=== PATIENT | female | born 1990 | race Caucasian/White ===

== ENCOUNTER 2019-04-21 10:45 | Emergency (ER) | payer OTHER ==
--- NOTE | 2019-04-21 11:41 | ER Document Report ---
ED Medical Screen (RME) - General Chief Complaint: Nausea Stated Complaint: NAUSEA Time Seen by Provider: 04/21/19 11:36 Mode of Arrival: Ambulatory Information source: Patient Notes: 28-year-old female presents to ED for a painful knot to the top of her head that is been there since April 13 but is growing in size. She states she is nauseated with blurry vision that is increasing since the . She states she went to [facility] the provider roughly touch the back of her head and then told her there was nothing she was concerned about. She states she is here to find out what is going on and why this is progressing. She states she does not have any medical history except for gallbladder removal and depression and she smokes half a pack a day. I have greeted and performed a rapid initial assessment of this patient. A comprehensive ED assessment and evaluation of the patient, analysis of test results and completion of medical decision making process will be conducted by an additional ED providers. TRAVEL OUTSIDE OF THE [place] IN LAST 30 DAYS: No - Related Data Allergies/Adverse Reactions: Sulfa (Sulfonamide Antibiotics) Allergy (Verified 04/21/19 11:26) Past Medical History - Social History Chew tobacco use (# tins/day): No Frequency of alcohol use: Recovering Alcoholic Drug Abuse: None Physical Exam - Vital signs Vitals: Temp Pulse Resp BP Pulse Ox 98.6 F 79 18 123/79 99 04/21/19 10:47 04/21/19 10:47 04/21/19 10:47 04/21/19 10:47 04/21/19 10:47 Course - Vital Signs Vital signs: Temp Pulse Resp BP Pulse Ox 98.6 F 79 18 123/79 99 04/21/19 10:47 04/21/19 10:47 04/21/19 10:47 04/21/19 10:47 04/21/19 10:47
[2019-04-21 12:18] LABS: ABSOLUTE EOSINOPHILS # (AUTO) 0.1 10^3/uL (0.0-0.6); ABSOLUTE LYMPHOCYTES (AUTO) 1.3 10^3/uL (0.5-4.7); ABSOLUTE MONOCYTES (AUTO) 0.4 10^3/uL (0.1-1.4); ABSOLUTE NEUT (AUTO) 4.3 10^3/uL (1.7-8.2); BASOPHILS % (AUTO) 0.7 % (0-2); EOSINOPHILS % (AUTO) 1.2 % (0-6); HEMATOCRIT 41.1 % (36.0-47.0); LYMPHOCYTES % (AUTO) 20.8 % (13-45); MEAN CORPUSCULAR HEMOGLOBIN 33.8 pg (27.0-33.4); MEAN CORPUSCULAR HGB CONC 34.2 g/dL (32.0-36.0); MEAN CORPUSCULAR VOLUME 99 fl (80-97); MONOCYTES % (AUTO) 6.7 % (3-13); PLATELET COUNT 325 10^3/uL (150-450); RED BLOOD COUNT 4.16 10^6/uL (3.72-5.28); RED CELL DISTRIBUTION WIDTH 14.4 % (11.5-14.0); SEGMENTED NEUTROPHILS % (AUTO) 70.6 % (42-78); TOTAL CELLS COUNTED % (AUTO) 100 %; WHITE BLOOD COUNT 6.1 10^3/uL (4.0-10.5)
[2019-04-21 12:36] LABS: ALKALINE PHOSPHATASE 54 U/L (38-126); ANION GAP 13 (5-19); ASPARTATE AMINO TRANSFERASE 17 U/L (14-36); BILIRUBIN,DIRECT 0.1 mg/dL (0.0-0.4); BILIRUBIN,TOTAL 0.5 mg/dL (0.2-1.3); BLOOD UREA NITROGEN 6 mg/dL (7-20); CARBON DIOXIDE 22 mmol/L (22-30); CHLORIDE 108 mmol/L (98-107); GLUCOSE 96 mg/dL (75-110)
--- NOTE | 2019-04-21 12:41 | RADIOLOGY REPORT (SQ) ---
EXAM DESCRIPTION: CT HEAD WITHOUT COMPLETED DATE/TIME: 04/21/2019 12:30 pm REASON FOR STUDY: pain swelling blurred vision COMPARISON: None. TECHNIQUE: Axial images acquired through the brain without intravenous contrast. Images reviewed wi th bone, brain and subdural windows. Additional sagittal and coronal reconstructions were generated. Images stored on PACS. All CT scanners at this facility use dose modulation, iterative reconstruction, and/or weight based d osing when appropriate to reduce radiation dose to as low as reasonably achievable (ALARA). [facility]: Dose Right [facility]: CareDose [facility]: Dose Right [facility]: Teradose 4D [facility]: [employer]QMart RADIATION DOSE: CT Rad equipment meets quality standard of care and radiation dose reduction techniq ues were employed. CTDIvol: 53.2 mGy. DLP: 1097 mGy-cm. mGy. LIMITATIONS: None. FINDINGS: VENTRICLES: Normal size and contour. CEREBRUM: No masses. No hemorrhage. No midline shift. No evidence for acute infarction. Normal gra y/white matter differentiation. No areas of low density in the white matter. CEREBELLUM: No masses. No hemorrhage. No alteration of density. No evidence for acute infarction. EXTRAAXIAL SPACES: No fluid collections. No masses. ORBITS AND GLOBE: No intra- or extraconal masses. Normal contour of globe without masses. CALVARIUM: No fracture. PARANASAL SINUSES: Fluid left sphenoid sinus. SOFT TISSUES: No mass or hematoma. OTHER: No other significant finding. IMPRESSION: NORMAL BRAIN CT WITHOUT CONTRAST. EVIDENCE OF ACUTE STROKE: NO. COMMENT: Quality ID # [id number]: Final reports with documentation of one or more dose reduction techniques (e.g., Automated exposure control, adjustment of the mA and/or kV according to patient size, use of iterative reconstruction technique) TECHNICAL DOCUMENTATION: JOB ID: [id number] [employer]- All Rights Reserved Reading location - IP/workstation name: [email or web address]
--- NOTE | 2019-04-21 12:55 | ER Document Report ---
ED General - General Chief Complaint: Nausea Stated Complaint: NAUSEA Time Seen by Provider: 04/21/19 11:36 Primary Care Provider: CUCO LOVELL DO [Primary Care Provider] - Follow up in 3-5 days Mode of Arrival: Ambulatory Information source: Patient Notes: This 28-year-old female with history of depression presents emergency department with complaints that on April 13 she noticed swelling to the top of her skull. She reports it started getting larger and now goes along the center of her scalp. Reports she also started experiencing her eyes messing up, blurry vision. Reports pressure in her head pressure at the base of her skull and sharp pain at the base of her neck. She reports she is nauseated all the time. She denies trauma. Denies fever and vomiting. Reports only past history of depression and [place]. Reports history of a cousin having a brain tumor. TRAVEL OUTSIDE OF THE [place] IN LAST 30 DAYS: No - HPI Onset: Other - 04/13/19 Onset/Duration: Persistent, Worse Quality of pain: Achy, Pressure Associated symptoms: Nausea Exacerbated by: Denies Relieved by: Denies Similar symptoms previously: No Recently seen / treated by doctor: No - Related Data Allergies/Adverse Reactions: Sulfa (Sulfonamide Antibiotics) Allergy (Verified 04/21/19 11:26) Past Medical History - General Information source: Patient Last Menstrual Period: 04/13/19 - Social History Smoking Status: Current Every Day Smoker Cigarette use (# per day): Yes Chew tobacco use (# tins/day): No Frequency of alcohol use: Recovering Alcoholic Drug Abuse: None Lives with: Family Family History: None Patient has suicidal ideation: No Patient has homicidal ideation: No Psychiatric Medical History: Reports: Hx Depression Past Surgical History: Reports: Hx Cholecystectomy Review of Systems - Review of Systems Notes: Review HPI for review of systems., All other systems negative Physical Exam - Vital signs Vitals: Temp Pulse Resp BP Pulse Ox 98.6 F 79 18 123/79 99 04/21/19 10:47 04/21/19 10:47 04/21/19 10:47 04/21/19 10:47 04/21/19 10:47 - General General appearance: Appears well, Alert, Anxious In distress: None - HEENT Head: Normocephalic, Other - slight swelling noted to top of skull without erythema, no induration, no pustule,no warmth. Eyes: Normal Conjunctiva: Normal Extraocular movements intact: Yes Eyelashes: Normal Pupils: PERRL Ears: Normal External canal: Normal Tympanic membrane: Normal Sinus: Normal. No: Abnormal, Frontal, Mastoid, Maxillary, Swelling, Tenderness Nasal: Normal Mouth/Lips: Normal Mucous membranes: Normal, Moist Pharynx: Normal Neck: Normal, Supple. No: Lymphadenopathy - Respiratory Respiratory status: No respiratory distress Chest status: Nontender Breath sounds: Normal Chest palpation: Normal - Cardiovascular Rhythm: Regular Heart sounds: Normal auscultation Murmur: No - Abdominal Inspection: Normal Distension: No distension Bowel sounds: Normal Tenderness: Nontender Organomegaly: No organomegaly - Back Back: Normal, Nontender - Extremities General upper extremity: Normal ROM General lower extremity: Normal ROM, Normal weight bearing - Neurological Neuro grossly intact: Yes Cognition: Normal Orientation: AAOx4 Sharad Coma Scale Eye Opening: Spontaneous Sharad Coma Scale Verbal: Oriented Sharad Coma Scale Motor: Obeys Commands Clawson Coma Scale Total: 15 Speech: Normal Cranial nerves: Normal Motor strength normal: LUE, RUE, LLE, RLE 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 She reports not has been growing. She reports her eyes are blurry vision pressure in her head base of the skull hurts and a sharp pain at the base of her neck. She reports she is constantly nauseated but denies reports last menstrual period was April 13. She denies trauma. She denies fever vomiting. No obvious mass noted to the top of her head. No obvious neuro deficits. Patient reports cousin with history of brain tumor. CT of the head was negative for any kind of mass. Labs are unremarkable. Patient will be instructed to follow-up with her primary care provider and polymer tester for evaluation. Head CT 04/21/19 12:15 IMPRESSION: NORMAL BRAIN CT WITHOUT CONTRAST. EVIDENCE OF ACUTE STROKE: NO. 04/21/19 12:06 04/21/19 12:06 MCV 99 fl (80-97) H 04/21/19 12:06 MCH 33.8 pg (27.0-33.4) H 04/21/19 12:06 MCHC 34.2 g/dL (32.0-36.0) 04/21/19 12:06 RDW 14.4 % (11.5-14.0) H 04/21/19 12:06 Seg Neutrophils % 70.6 % (42-78) 04/21/19 12:06 Chloride 108 mmol/L (98-107) H 04/21/19 12:06 Carbon Dioxide 22 mmol/L (22-30) 04/21/19 12:06 Anion Gap 13 (5-19) 04/21/19 12:06 Est GFR ( Amer) > 60 (>60) 04/21/19 12:06 Glucose 96 mg/dL (75-110) 04/21/19 12:06 Calcium 10.0 mg/dL (8.4-10.2) 04/21/19 12:06 Total Bilirubin 0.5 mg/dL (0.2-1.3) 04/21/19 12:06 AST 17 U/L (14-36) 04/21/19 12:06 Alkaline Phosphatase 54 U/L (38-126) 04/21/19 12:06 Total Protein 8.0 g/dL (6.3-8.2) 04/21/19 12:06 Albumin 5.0 g/dL (3.5-5.0) 04/21/19 12:06 Serum HCG, Qual NEGATIVE (NEGATIVE) 04/21/19 12:06 - Vital Signs Vital signs: Temp Pulse Resp BP Pulse Ox 98.2 F 69 18 101/64 98 04/21/19 13:13 04/21/19 13:13 04/21/19 13:13 04/21/19 13:13 04/21/19 13:13 - Laboratory Result Diagrams: 04/21/19 12:06 04/21/19 12:06 Laboratory results interpreted by me: 04/21/19 04/21/19 12:06 12:06 MCV 99 H MCH 33.8 H RDW 14.4 H Chloride 108 H BUN 6 L - Diagnostic Test Radiology reviewed: Image reviewed, Reports reviewed Discharge - Discharge Clinical Impression: Nausea, scalp pressure, Blurred vision, bilateral Condition: Stable Disposition: HOME, SELF-CARE Instructions: Antinausea Medication ([facility]), Opthalmology Additional Instructions: *You have been treated for scalp swelling irritation, blurred vision, nausea *Your CT was negative for a mass, your labs were unremarkable today. *Monitor the site for signs of increasing swelling, signs of infection such as redness, increased pain, warmth *Take ibuprofen for the pain as indicated, take Zofran for the nausea as prescribed *Follow up with an polymer tester within 1 week *Follow up with a primary care provider within 1 week *Return to ED for signs of infection, worsening condition, changes, needs Prescriptions: Ondansetron [Zofran Odt 4 mg Tablet] 1 - 2 tab PO Q4H #10 tab.hughdis Referrals: CUCO LOVELL DO [Primary Care Provider] - Follow up in 3-5 days
[2019-04-21 13:13] VITALS: BP 101/64
== END 2019-04-21 13:19 | disposition home or self-care (01) ==
LOC: ER 10:45
DX: R11.0 Nausea (principal); R22.0 Localized swelling, mass and lump, head; H53.8 Other visual disturbances; M54.2 Cervicalgia; M89.8X8 Other specified disorders of bone, other site; F17.210 Nicotine dependence, cigarettes, uncomplicated; Z88.2 Allergy status to sulfonamides
CPT/HCPCS: 36415; 70450; 80053; 84703; 85025; 99284